=== PATIENT | female | born 1985 | race Caucasian/White ===

== ENCOUNTER 2020-12-09 18:03 | Inpatient (IN) | payer MEDICAID ==
[~2020-12-09] VITALS: Ht 170.2 cm; Wt 68.0 kg
[2020-12-10] MEDS ORDERED: ZOLPIDEM TARTRATE 10 MG TABLET PO PRN (02:15)
[2020-12-10 03:52] VITALS: BP 129/72
[2020-12-10 08:21] VITALS: BP 127/82
[2020-12-10] MEDS ORDERED: TRAZ-252 PO (08:45)
[2020-12-10] MEDS ORDERED: FLUO20CA36 PO (08:45)
[2020-12-10] MEDS ORDERED: IBUPROFEN 600 MG TABLET PO PRN (10:15)
[2020-12-10] MEDS ORDERED: PETROLATUM,WHITE 28 GM JELLY TP PRN (10:15)
[2020-12-10] MEDS ORDERED: BENZOCAINE/MENTHOL LOZENGE PO PRN (10:15)
[2020-12-10] MEDS ORDERED: ALBUTEROL SULFATE HFA 90 MCG/PUFF 8 GM INHALER IH PRN (10:15)
[2020-12-10] MEDS ORDERED: LOPERAMIDE HCL 2 MG CAPSULE PO PRN (10:15)
[2020-12-10] MEDS ORDERED: BACITRACIN 28 GM OINTMENT TP PRN (10:15)
[2020-12-10] MEDS ORDERED: MAGNESIUM HYDROXIDE SUSPENSION 30 ML UDCUP PO PRN (10:15)
[2020-12-10] MEDS ORDERED: DOCUSATE SODIUM 100 MG CAPSULE PO PRN (10:15)
[2020-12-10] MEDS ORDERED: ACETAMINOPHEN 325 MG TABLET PO PRN (10:15)
[2020-12-10] MEDS ORDERED: CloNIDine HCL 0.1 MG TABLET PO PRN (10:15)
[2020-12-10] MEDS ORDERED: MAG HYDROX/AL HYDROX/SIMETH ES 30 ML SUSPENSION UDCUP PO PRN (10:15)
[2020-12-10] MEDS ORDERED: OMEPRAZOLE 20 MG CAPSULE PO PRN (10:15)
[2020-12-10] MEDS ORDERED: ONDANSETRON HCL 4 MG TABLET PO PRN (10:15)
[2020-12-10] MEDS: LORazepam 2 MG TABLET PO PRN (12:42)
[2020-12-10] MEDS: HALOPERIDOL 5 MG TABLET PO PRN (12:43)
[2020-12-10 16:06] VITALS: BP 127/79
[2020-12-11] VITALS: BP 103/57
[2020-12-11] MEDS: FLUoxetine HCL 20 MG CAPSULE PO SCH (07:57)
[2020-12-11] MEDS: LORazepam 2 MG TABLET PO PRN (07:58)
[2020-12-11 08:41] VITALS: BP 100/70
[2020-12-11 16:24] VITALS: BP 114/71
[2020-12-11] MEDS: TraZODone HCL 50 MG TABLET PO SCH (21:17)
[2020-12-12 05:51] VITALS: BP 119/74
[2020-12-12 08:26] VITALS: BP 120/81
[2020-12-12] MEDS: CITALOPRAM HYDROBROMIDE 20 MG TABLET PO SCH (09:00)
[2020-12-12] MEDS: FLUoxetine HCL 20 MG CAPSULE PO SCH (09:18)
[2020-12-12] MEDS: LORazepam 2 MG TABLET PO PRN (13:37)
[2020-12-12 18:00] VITALS: BP 114/72
[2020-12-12] MEDS: TraZODone HCL 50 MG TABLET PO SCH (20:42)
[2020-12-13 00:05] VITALS: BP 108/66
[2020-12-13 08:03] VITALS: BP 110/69
[2020-12-13] MEDS: CITALOPRAM HYDROBROMIDE 20 MG TABLET PO SCH (08:50)
[2020-12-13] MEDS: FLUoxetine HCL 20 MG CAPSULE PO SCH (08:50)
[2020-12-13 16:04] VITALS: BP 120/72
[2020-12-13] MEDS: MELATONIN 5 MG TABLET PO SCH (21:28)
[2020-12-14 03:54] VITALS: BP 118/69
[2020-12-14 08:05] VITALS: BP 118/77
[2020-12-14] MEDS: CITALOPRAM HYDROBROMIDE 20 MG TABLET PO SCH (08:49)
[2020-12-14] MEDS: FLUoxetine HCL 20 MG CAPSULE PO SCH (08:49)
[2020-12-14] MEDS: LORazepam 2 MG TABLET PO PRN (11:32)
[2020-12-14 16:14] VITALS: BP 108/61
[2020-12-14] MEDS: MELATONIN 5 MG TABLET PO SCH (20:33)
[2020-12-14] MEDS: OLANZapine 5 MG TABLET PO SCH (20:33)
[2020-12-15 06:06] VITALS: BP 110/75
[2020-12-15 08:10] VITALS: BP 116/79
[2020-12-15] MEDS: FLUoxetine HCL 20 MG CAPSULE PO SCH (08:41)
[2020-12-15 16:05] VITALS: BP 126/80
[2020-12-15] MEDS: HALOPERIDOL 5 MG TABLET PO PRN (16:07)
[2020-12-15] MEDS: LORazepam 2 MG TABLET PO PRN (16:07)
[2020-12-15] MEDS: OLANZapine 5 MG TABLET PO SCH (20:20)
[2020-12-15] MEDS: MELATONIN 5 MG TABLET PO SCH (20:20)
[2020-12-16 01:59] VITALS: BP 101/64
[2020-12-16] MEDS: FLUoxetine HCL 20 MG CAPSULE PO SCH (08:34)
[2020-12-16 08:48] VITALS: BP 94/54
[2020-12-16 16:07] VITALS: BP 102/64
[2020-12-16] MEDS: OLANZapine 5 MG TABLET PO SCH (20:08)
[2020-12-16] MEDS: MELATONIN 5 MG TABLET PO SCH (20:08)
[2020-12-17 00:09] VITALS: BP 100/60
[2020-12-17 07:08] LABS: BASOPHILS % (AUTO) 0.7 % (0.0-2.0); EOSINOPHILS % (AUTO) 2.3 % (1.0-6.0); HEMATOCRIT 35.9 % (36-46); HEMOGLOBIN 12.6 g/dL (12.0-16.0); LYMPHOCYTES # (AUTO) 0.9 K/uL (1.0-4.8); LYMPHOCYTES % (AUTO) 29.6 % (22.0-44.0); MEAN CORPUSCULAR HEMOGLOBIN 30.6 pg (26.0-34.0); MEAN CORPUSCULAR VOLUME 87 fL (80-100); MONOCYTES # (AUTO) 0.5 K/uL (0.1-1.0); MONOCYTES % (AUTO) 17.5 % (2.0-9.0); NEUTROPHILS # (AUTO) 1.4 K/uL (1.8-7.7); NEUTROPHILS % (AUTO) 49.9 % (40.0-70.0); PLATELET COUNT (AUTO) 234 K/uL (150-450); RED BLOOD CELL COUNT(AUTO) 4.11 MIL/uL (4.00-5.20); RED CELL DISTRIBUTION WIDTH 11.4 % (11.5-14.5)
[2020-12-17 07:13] LABS: COVID AG,FIA SOURCE NASOPHARYNGEAL
[2020-12-17 07:45] LABS: ALANINE AMINOTRANSFERASE 17 U/L (12-78); ALBUMIN 3.1 g/dL (3.4-5.0); ALKALINE PHOSPHATASE 91 U/L (46-116); ANION GAP 3 mmol/L (8-16); ASPARTATE AMINOTRANSFERASE 19 U/L (15-37); BILIRUBIN,TOTAL 0.4 mg/dL (0.1-1.0); CALCIUM, TOTAL 8.8 mg/dL (8.8-10.5); CARBON DIOXIDE 30 mmol/L (22-29); CHLORIDE 107 mmol/L (98-107); CHOL/HDL RATIO 3.9 (3.9-5.7); CHOLESTEROL 104 mg/dL (131-200); CREATININE 0.87 mg/dL (0.60-1.30); FREE T4 (FREE THYROXINE) 1.21 ng/dL (0.76-1.46); GLOMERULAR FILTR. RATE CALC > 60 mL/min (>60); GLUCOSE,RANDOM 80 mg/dL (70-110); HDL CHOLESTEROL 27 mg/dL (40-60); LDL CHOL (CALC.) 63 mg/dL (0-130); POTASSIUM 4.5 mmol/L (3.5-5.1); SODIUM SERUM 140 mmol/L (136-145); THYROID STIMULATING HORMONE 0.79 uIU/mL (0.36-3.74); TOTAL PROTEIN, SERUM 7.3 g/dL (6.4-8.2); TRIGLYCERIDES 70 mg/dL (15-150); UREA NITROGEN, BLOOD 9 mg/dL (7-18)
[2020-12-17 08:12] VITALS: BP 111/61
[2020-12-17] MEDS: FLUoxetine HCL 20 MG CAPSULE PO SCH (08:29)
[2020-12-17 16:17] VITALS: BP 121/70
[2020-12-17] MEDS: OLANZapine 5 MG TABLET PO SCH (20:43)
[2020-12-17] MEDS: MELATONIN 5 MG TABLET PO SCH (20:43)
[2020-12-18 05:21] VITALS: BP 112/67
[2020-12-18 08:14] VITALS: BP 116/68
[2020-12-18] MEDS: FLUoxetine HCL 20 MG CAPSULE PO SCH (08:58)
[2020-12-18] MEDS ORDERED: OLAN5TAB52 PO (11:54)
[2020-12-18] MEDS ORDERED: MELA5TAB21 PO (11:54)
[2020-12-18] MEDS ORDERED: FLUO20CA36 PO (11:55)
== END 2020-12-18 13:00 | disposition home or self-care (01) | DRG 753 ==
LOC: B2S 12-10 01:33
PROVIDERS: ADMIT Psychiatry & Neurology Psychiatry; ATTEND Psychiatry & Neurology Psychiatry
DX: F31.9 Bipolar disorder, unspecified (principal); F12.10 Cannabis abuse, uncomplicated; S61.512A Laceration without foreign body of left wrist, initial encounter; F41.9 Anxiety disorder, unspecified; G47.00 Insomnia, unspecified; X58.XXXA Exposure to other specified factors, initial encounter; Y93.89 Activity, other specified; Y92.89 Other specified places as the place of occurrence of the external cause; Y99.8 Other external cause status; Z20.822 Contact with and (suspected) exposure to COVID-19
CPT/HCPCS: 80053; 80061; 84439; 84443; 85025; 87081; A9575